=== PATIENT | male | born 1985 | race Caucasian/White ===

== ENCOUNTER 2016-12-14 08:08 | Emergency (ER) | payer OTHER ==
[~2016-12-14 08:08] MED LIST: HYDROCHLOROTHIA25 M1 PO; HYDROCODONE BIT1 T11 PO; LISINOPRIL5 MG PO; PREDNISONE50 MG PO; SYMBICORT1 AE1 INH; TESSALON PERLE100 M1 PO; ZANTAC 150150 MG PO
[2016-12-14] MEDS ORDERED: AUGMENTIN 875875 MG PO (09:05)
[2016-12-14] MEDS ORDERED: NAPROSYN500 MG PO (09:06)
== END 2016-12-14 11:27 | disposition home or self-care (01) ==
LOC: ED 08:08
DX: K04.7 Periapical abscess without sinus (principal); Z79.899 Other long term (current) drug therapy

== ENCOUNTER 2017-03-16 18:29 | Emergency (ER) | payer OTHER ==
[~2017-03-16 18:29] MED LIST changes: +AUGMENTIN 875875 MG PO; +NAPROSYN500 MG PO
[2017-03-16] MEDS ORDERED: CHLORZOXAZONE500 M2 PO (18:49)
[2017-03-16] MEDS ORDERED: NAPROSYN500 MG PO (18:49)
== END 2017-03-16 19:31 | disposition home or self-care (01) ==
LOC: ED 18:29
DX: M54.42 Lumbago with sciatica, left side (principal); R03.0 Elevated blood-pressure reading, without diagnosis of hypertension; Z79.899 Other long term (current) drug therapy

== ENCOUNTER 2017-03-27 16:59 | Emergency (ER) | payer OTHER ==
[~2017-03-27] VITALS: Ht 185.4 cm; Wt 113.4 kg
--- NOTE | ~2017-03-27 | EKG ---
[place], [place] ELECTROCARDIOGRAM REPORT NAME: MARLA MCDONNELL UNIT #: [id number] ROOM: DOCTOR: ELGIN FRAIRE MD BIRTHDATE: [birth year] DOS: 03/27/2017 TIME: 1707 hours. FINDINGS: 1. Sinus tachycardia at 117 beats per minute. 2. The tracing is normal. 3. No previous tracing is available for comparison. ELGIN FRAIRE MD CM:EKGRPT:ELECTROCARDIOGRAM REPORT [id number] ELGIN FRAIRE MD
[~2017-03-27 16:59] MED LIST changes: +CHLORZOXAZONE500 M2 PO
[2017-03-27] MEDS ORDERED: ZESTORETIC 10-1 EACH PO (17:16)
[2017-03-27 17:39] LABS: BASO % 0.2 % (0.0-1.0); EOS % 0.2 % (1.0-4.0); HEMOGLOBIN 16.9 g/dl (14.0-18.0); LYMPH # 0.9 10*3/uL (1.3-4.4); LYMPH % 15.9 % (27.0-41.0); MEAN CELL VOLUME 82.7 fl (80.0-94.0); MEAN CORPUSCULAR HGB 29.8 pg (27.0-31.0); MEAN PLATELET VOLUME 10.3 fl (9.6-12.3); MONO # 0.7 10*3/uL (0.1-1.0); MONO % 11.9 % (3.0-9.0); NEUT # 4.2 10*3/uL (2.3-7.9); NEUT % 71.5 % (47.0-73.0); PLATELET COUNT AUTOMATED 212 10*3/uL (130-400); RED BLOOD COUNT 5.68 10*6/uL (4.50-5.90); WHITE BLOOD COUNT 5.8 10*3/uL (4.8-10.8)
[2017-03-27 17:49] LABS: ACT PARTIAL THROMBO TIME 25.1 SECONDS (20.8-31.5); INTERNATIONAL NORM RATIO 1.1 (2.0-3.5)
[2017-03-27 17:56] LABS: ALBUMIN 4.3 gm/dl (3.1-4.5); ALKALINE PHOSPHATASE 77 U/L (45-117); BUN 17 mg/dl (7-24); CHLORIDE 98 mmol/L (98-107); CREATININE 1.31 mg/dL (0.70-1.30); POTASSIUM 3.2 mmol/L (3.5-5.1); SGOT/AST 36 IU/L (3-35); SGPT/ALT 67 U/L (12-78); SODIUM 130 mmol/L (136-145); TOTAL PROTEIN 8.3 gm/dL (6.4-8.2)
[2017-03-27 17:57] LABS: TROPONIN I < 0.015 ng/ml (<0.045)
[2017-03-27] MEDS ORDERED: TAMIFLU 75MG CA75 MG PO (19:07)
[2017-03-27] MEDS ORDERED: Motrin,Rufen800 MG PO (19:07)
[2017-03-27] MEDS ORDERED: Zofran4 MG PO (19:07)
== END 2017-03-27 19:16 | disposition home or self-care (01) ==
LOC: ED 16:59
PROVIDERS: Physician Assistant
DX: J10.1 Influenza due to other identified influenza virus with other respiratory manifestations (principal); Z79.899 Other long term (current) drug therapy